=== PATIENT | female | born 1990 | race Two or more races ===

== ENCOUNTER 2016-05-30 02:10 | Emergency (ER) | payer OTHER ==
[~2016-05-30] VITALS: Ht 152.4 cm; Wt 72.6 kg
[2016-05-30 03:09] VITALS: BP 125/84
[2016-05-30] MEDS ORDERED: ACETAMINOPHEN/CODEINE#3 (300/30mg) TAB PO ONE (03:30)
== END 2016-05-30 03:45 | disposition home or self-care (01) ==
LOC: ER 02:13
DX: S63.501A Unspecified sprain of right wrist, initial encounter (principal); Z88.0 Allergy status to penicillin; W19.XXXA Unspecified fall, initial encounter; Y93.89 Activity, other specified; Y99.8 Other external cause status; Y92.89 Other specified places as the place of occurrence of the external cause
CPT/HCPCS: 29125; 73110